=== PATIENT | female | born 1955 | race Hispanic/Latino ===

== ENCOUNTER 2017-10-31 13:12 | Outpatient (CLI) | payer BC | END 2017-10-31 13:13 | disposition home or self-care (01) | LOC: BICMAMMO 13:12 | PROVIDERS: ATTEND Family Medicine | DX: Z12.31 Encounter for screening mammogram for malignant neoplasm of breast (principal) | CPT/HCPCS: 77063; 77067 ==

== ENCOUNTER 2018-11-13 07:47 | Outpatient (CLI) | payer BC ==
--- NOTE | 2018-11-13 08:15 | MMO ---
Bilateral MAMMO Bilat Screen [facility]. CLINICAL HISTORY: Patient is 63 years old and is seen for screening. The patient has no family history of breast cancer. The patient has no personal history of cancer. VIEWS: The views performed were: bilateral craniocaudal with tomosynthesis and bilateral mediolateral oblique with tomosynthesis. FILMS COMPARED: The present examination has been compared to prior imaging studies performed at [facility] on 10/05/2013, 10/08/2014, 10/10/2015, 10/16/2016 and 10/31/2017. MAMMOGRAM FINDINGS: The breasts are almost entirely fat. There are no suspicious masses, suspicious calcifications, or new areas of architectural distortion. IMPRESSION: THERE IS NO MAMMOGRAPHIC EVIDENCE OF MALIGNANCY. A ROUTINE FOLLOW-UP MAMMOGRAM IN 1 YEAR IS RECOMMENDED. THE RESULTS OF THIS EXAM WERE SENT TO THE PATIENT. ACR BI-RADS Category 1 - Negative MAMMOGRAPHY NOTE: 1. A negative mammogram report should not delay a biopsy if a dominant of clinically suspicious mass is present. 2. Approximately 10% to 15% of breast cancers are not detected by mammography. 3. Adenosis and dense breasts may obscure an underlying neoplasm.
== END 2018-11-13 07:48 | disposition home or self-care (01) ==
LOC: BICMAMMO 07:47
PROVIDERS: ATTEND Family Medicine
DX: Z12.31 Encounter for screening mammogram for malignant neoplasm of breast (principal)
CPT/HCPCS: 77063; 77067

== ENCOUNTER 2019-11-17 08:19 | Outpatient (CLI) | payer BC ==
--- NOTE | 2019-11-17 09:24 | MMO ---
Bilateral MAMMO Bilat Screen [facility]. CLINICAL HISTORY: Patient is 64 years old and is seen for screening. The patient has no family history of breast cancer. The patient has no personal history of cancer. VIEWS: The views performed were: bilateral craniocaudal with tomosynthesis and bilateral mediolateral oblique with tomosynthesis. FILMS COMPARED: The present examination has been compared to prior imaging studies performed at [facility] on 10/10/2015, 10/16/2016, 10/31/2017 and 11/13/2018. This study has been interpreted with the assistance of computer-aided detection. MAMMOGRAM FINDINGS: The breasts are almost entirely fat. There are no suspicious masses, suspicious calcifications, or new areas of architectural distortion. IMPRESSION: THERE IS NO MAMMOGRAPHIC EVIDENCE OF MALIGNANCY. A ROUTINE FOLLOW-UP MAMMOGRAM IN 1 YEAR IS RECOMMENDED. THE RESULTS OF THIS EXAM WERE SENT TO THE PATIENT. ACR BI-RADS Category 1 - Negative MAMMOGRAPHY NOTE: 1. A negative mammogram report should not delay a biopsy if a dominant of clinically suspicious mass is present. 2. Approximately 10% to 15% of breast cancers are not detected by mammography. 3. Adenosis and dense breasts may obscure an underlying neoplasm. Reported by: BINH CERDA MD Electonically Signed: [id number]
== END 2019-11-17 08:20 | disposition home or self-care (01) ==
LOC: BICMAMMO 08:19
PROVIDERS: ATTEND Family Medicine
DX: Z12.31 Encounter for screening mammogram for malignant neoplasm of breast (principal)
CPT/HCPCS: 77063; 77067

== ENCOUNTER 2020-11-03 16:40 | Observation (INO) | payer BC ==
[2020-11-03 17:27] LABS: Bacteria/HPF 4+ HPF (None Seen); Bilirubin Negative (Negative); Blood, Urine 1+ (Negative); Clarity Turbid (Clear); Glucose, Urine (Dipstick) Normal (Negative); Ketone, Urine 10 mg/dL (Negative); Leukocyte 75 Leu/uL (Negative); Nitrite Negative (Negative); Protein, Urine (Dipstick) 10 mg/dL (Neg-Trace); Specific Gravity, Urine 1.018 (1.002-1.036); Squamous Epithelial 0-3 HPF (0-3); Urobilinogen Normal mg/dL (Less than 2); WBC/HPF 21-50 HPF (0-3); pH, Urine 7.5 (5.0-9.0)
[2020-11-03 17:28] LABS: Hemoglobin 12.4 g/dL (12.0-16.0); Mean Corpuscular HGB CONC 32.7 g/dL (32.0-36.0); Mean Corpuscular Hemoglobin 30.2 pg (27.0-31.0); Mean Corpuscular Volume 92.4 fL (78.0-98.0); Mean Platelet Volume 7.5 fL (7.4-10.4); Platelet Count 298 thou/uL (130-400); RBC Distribution Width 12.3 % (11.5-14.5); Red Blood Cell (RBC) Count 4.09 mill/uL (4.20-5.40); White Blood Cell (WBC) Count 5.7 thou/uL (4.8-10.8)
[2020-11-03 17:45] LABS: Band 3 % (5-11); Lymphocytes 12 % (21-51); MDiff Complete? YES; Monocytes 11 % (0-10); Neutrophil 72 % (42-75); Platelet Morphology Comment Appears Adequate; RBC Morphology Normal; Reactive Lymphocytes 1 % (0-10)
[2020-11-03 17:51] LABS: ALT (SGPT) 19 U/L (8-55); AST (SGOT) 20 U/L (5-34); Albumin 4.3 g/dL (3.4-4.8); Alkaline Phosphatase 96 U/L (40-110); Anion Gap 13 mmol/L (10-20); BUN (Urea Nitrogen) 10 mg/dL (9.8-20.1); Bilirubin, Total 0.5 mg/dL (0.2-1.2); Calc. Creatinine Clearance 0 mL/min (70-130); Calcium 9.5 mg/dL (7.8-10.44); Carbon Dioxide 22 mmol/L (23-31); Chloride 101 mmol/L (98-107); Globulin 3.2 g/dL (2.4-3.5); Glucose 114 mg/dL (80-115); Potassium 4.3 mmol/L (3.5-5.1); Protein, Total 7.5 g/dL (5.8-8.1); Sodium 132 mmol/L (136-145)
[2020-11-03] MEDS ORDERED: Acetaminophen 500 MG TAB ONE (17:53)
[2020-11-03] MEDS ORDERED: Metoclopramide HCl 10 MG/2 ML VIAL ONE (17:53)
[2020-11-03] MEDS ORDERED: diphenhydrAMINE 50 MG/ML VIAL ONE (17:53)
[2020-11-03 18:09] LABS: CKMB 1.4 ng/mL (0-6.6)
[2020-11-03] MEDS ORDERED: Aspirin Chewable 81 MG TAB ONE (19:59)
[2020-11-03] MEDS ORDERED: Ondansetron ODT 4 MG TAB PO PRN (20:34)
[2020-11-03] MEDS ORDERED: Acetaminophen 325 MG TAB PO PRN (20:34)
[2020-11-03] MEDS ORDERED: Zolpidem Tartrate 5 MG TAB PO PRN (20:34)
[2020-11-03] MEDS ORDERED: Bisacodyl 5 MG TAB PO PRN (20:34)
[2020-11-03] MEDS ORDERED: Senokot S 8.6-50 MG TAB PO PRN (20:34)
[2020-11-03] MEDS ORDERED: Guaifenesin DM 100-10/5 ML UDCUP PO PRN (20:34)
[2020-11-03] MEDS ORDERED: Calcium Carbonate 500 MG ChewTAB PO PRN (20:34)
[2020-11-03] MEDS ORDERED: HYDROcodone/Acetaminophen 5/325 mg Tablet PO PRN (20:34)
[2020-11-03] MEDS ORDERED: Loperamide HCl 2 MG CAP PO PRN (20:34)
[2020-11-03] MEDS ORDERED: Ondansetron PF 4 MG/2 ML Vial IVP PRN (20:34)
[2020-11-03] MEDS ORDERED: Nitroglycerin 0.4 MG TAB (25 Tab Bottle) SL PRN (20:35)
[2020-11-03] MEDS ORDERED: Ketorolac Tromethamine 30 MG/ML VIAL ONE (20:42)
[2020-11-03] MEDS ORDERED: cefTRIAXone\\ROCEPHIN 2 GM VIAL ONE (20:42)
[2020-11-03 21:38] LABS: Troponin I Less than 0.010 ng/mL (< 0.028)
[2020-11-03] MEDS ORDERED: Famotidine/PF 20 mg/2ml Vial ONE (21:58)
[2020-11-03] MEDS ORDERED: Famotidine 20 MG TAB ONE (22:02)
[2020-11-03] MEDS: Famotidine 20 MG TAB PO SCH (22:09)
[2020-11-03 23:49] LABS: Troponin I Less than 0.010 ng/mL (< 0.028)
[2020-11-03 23:51] LABS: SARS-CoV-2 NAA Rapid Test DETECTED (NotDetected)
[2020-11-04 07:02] LABS: Anion Gap 10 mmol/L (10-20); BUN (Urea Nitrogen) 12 mg/dL (9.8-20.1); Calc. Creatinine Clearance 0 mL/min (70-130); Calcium 9.1 mg/dL (7.8-10.44); Carbon Dioxide 25 mmol/L (23-31); Cardiac Risk 3.1 (Less than 4.5); Chloride 102 mmol/L (98-107); Cholesterol 129 mg/dl (< 200 Desired); Glucose 80 mg/dL (80-115); HDL Cholesterol 42 mg/dL (>60 Neg Risk); LDL Cholesterol, Calculated 64 mg/dL; Potassium 3.7 mmol/L (3.5-5.1); Sodium 133 mmol/L (136-145); Triglycerides 116 mg/dL (Less than 150)
[2020-11-04 07:43] LABS: Band 11 % (5-11); Eosinophils 2 % (0-10); Hemoglobin 12.1 g/dL (12.0-16.0); Lymphocytes 28 % (21-51); MDiff Complete? YES; Mean Corpuscular Hemoglobin 30.7 pg (27.0-31.0); Mean Platelet Volume 7.7 fL (7.4-10.4); Monocytes 12 % (0-10); Neutrophil 47 % (42-75); Platelet Count 286 thou/uL (130-400); RBC Distribution Width 12.3 % (11.5-14.5); Red Blood Cell (RBC) Count 3.93 mill/uL (4.20-5.40); White Blood Cell (WBC) Count 5.4 thou/uL (4.8-10.8)
[2020-11-04] MEDS ORDERED: Cholecalciferol 1,000 UNITS (25 MCG) TAB PO SCH (09:00)
[2020-11-04] MEDS ORDERED: Ascorbic Acid 500 mg Chewable Tablet PO SCH (09:00)
[2020-11-04] MEDS ORDERED: Aspirin Chewable 81 MG TAB PO SCH (09:00)
[2020-11-04] MEDS ORDERED: Zinc Sulfate 220 MG CAP PO SCH (09:00)
[2020-11-04] MEDS ORDERED: Zinc Sulfate 220 MG CAP ONE (09:13)
[2020-11-04] MEDS ORDERED: Cholecalciferol 1,000 UNITS (25 MCG) TAB ONE (09:13)
[2020-11-04] MEDS ORDERED: Ascorbic Acid 500 mg Chewable Tablet ONE ×2 (09:13→09:14)
[2020-11-04] MEDS ORDERED: Famotidine 20 MG TAB ONE (09:13)
[2020-11-04] MEDS ORDERED: Aspirin Chewable 81 MG TAB ONE (09:13)
[2020-11-04] MEDS: Famotidine 20 MG TAB PO SCH (09:17)
[2020-11-04] MEDS ORDERED: cefTRIAXone\\ROCEPHIN 1 GM in Sodium Chloride 0.9% 100 ML IVPB SCH (21:00)
== END 2020-11-04 12:20 | disposition home or self-care (01) ==
LOC: ERS 16:40 → ERHOLD 20:17
PROVIDERS: ADMIT Internal Medicine; ATTEND Internal Medicine
DX: U07.1 COVID-19 (principal); R07.89 Other chest pain; N30.00 Acute cystitis without hematuria; E78.5 Hyperlipidemia, unspecified; E78.00 Pure hypercholesterolemia, unspecified; I10 Essential (primary) hypertension; R77.8 Other specified abnormalities of plasma proteins; E03.9 Hypothyroidism, unspecified; Z79.899 Other long term (current) drug therapy
CPT/HCPCS: 0240U; 36415; 71045; 80048; 80053; 80061; 81003; 81015; 82553; 84484; 85025; 87077; 87086; 87186; 93005; 96365; 96367; 96375; G0378; J0696; J1200; J1885; J2765; S0028

== ENCOUNTER 2020-11-17 07:45 | Outpatient (CLI) | payer BC | END 2020-11-17 07:46 | disposition home or self-care (01) | LOC: BICULT 07:45 | PROVIDERS: ATTEND Family Medicine | DX: R31.29 Other microscopic hematuria (principal) | CPT/HCPCS: 76770 ==

== ENCOUNTER 2020-11-17 08:07 | Outpatient (CLI) | payer BC | END 2020-11-17 08:08 | disposition home or self-care (01) | LOC: BICMAMMO 08:07 | PROVIDERS: ATTEND Family Medicine | DX: Z12.31 Encounter for screening mammogram for malignant neoplasm of breast (principal) | CPT/HCPCS: 77063; 77067 ==

== ENCOUNTER 2021-12-01 13:16 | Outpatient (CLI) | payer MEDICARE, BC | END 2021-12-01 13:17 | disposition home or self-care (01) | LOC: BICMAMMO 13:16 | PROVIDERS: ATTEND Family Medicine | DX: Z12.31 Encounter for screening mammogram for malignant neoplasm of breast (principal) | CPT/HCPCS: 77063; 77067 ==

== ENCOUNTER 2024-06-23 08:30 | Outpatient (CLI) | payer MEDICARE, BC | END 2024-06-23 08:31 | disposition home or self-care (01) | LOC: BICMAMMO 08:30 | PROVIDERS: ATTEND Family Medicine | DX: Z12.31 Encounter for screening mammogram for malignant neoplasm of breast (principal); Z78.0 Asymptomatic menopausal state; M85.852 Other specified disorders of bone density and structure, left thigh | CPT/HCPCS: 77063; 77067; 77080 ==